=== PATIENT | male | born 1980 | race Caucasian/White ===

== ENCOUNTER 2018-05-15 02:29 | Emergency (ER) | payer SELFPAY ==
[2018-05-15 02:33] VITALS: BP 117/77
[2018-05-15] MEDS ORDERED: FLUORESCEIN SODIUM 1 MG STRIP OP ONE (02:33)
[2018-05-15] MEDS ORDERED: PROPARACAINE 0.5% 15 ML OPHT DROP ONE (02:33)
[2018-05-15] MEDS ORDERED: HYDROCOD/APAP 5/325 PREPACK#6 BTL TAKEHOME ONE (02:53)
[2018-05-15] MEDS ORDERED: ERYTHROMYCIN 0.5% 1 GM OPHT.OINT LEFTEYE ONE (02:53)
--- NOTE | 2018-05-15 02:53 | EDPHY ---
H & P Stated Complaint: L eye injury Time Seen by Provider: 05/15/18 02:46 HPI/ROS: Chief Complaint: Left eye injury HPI: 37-year-old male got poked in the left eye with a pool cue. He is complaining of blurry vision. Moderate eye pain which was improved with tetracaine administered by paramedics. No loss of consciousness. No bleeding. He does not wear glasses or contacts. ROS: 10 systems were reviewed and were negative except those elements noted in the HPI. PMH: Denies Social History: Occasional smoking, occasional alcohol Family History: non-contributory Physical Exam: Eye Exam Visual Acuity: 2/200 left eye at 4 ft EOM: Intact OU Visual Ram: Intact OU Pupil: Equal, round and reactive to light and accomodation OU External: Lids, lashes and margins normal OU Slit Lamp; Normal Conjuctiva, Iris normal, there is a large corneal defect encompassing the anterior surface of his left eye. There is diffuse for seen uptake. There is no leaking of aqueous humor., Anterior chambers clear without cells or flare, no hyphema, normal angles Fluorosceine exam: Diffuse uptake Tonometry: Not performed - Personal History Current Tetanus Diphtheria and Acellular Pertussis (TDAP): Yes - Medical/Surgical History Hx Asthma: No Hx Chronic Respiratory Disease: No Hx Diabetes: No Hx Cardiac Disease: No Hx Renal Disease: No Hx Cirrhosis: No Hx Alcoholism: No Hx HIV/AIDS: No Hx Splenectomy or Spleen Trauma: No Other PMH: GERD - Social History Smoking Status: Light smoker Constitutional: Initial Vital Signs Temperature (C) 36.7 C 05/15/18 02:31 Heart Rate 88 05/15/18 02:31 Respiratory Rate 16 05/15/18 02:31 Blood Pressure 117/77 05/15/18 02:31 O2 Sat (%) 96 05/15/18 02:31 O2 Delivery Mode Room Air Allergies/Adverse Reactions: No Known Allergies Allergy (Unverified 05/15/18 02:31) Home Medications: Medication Instructions Recorded Omeprazole 05/15/18 Medical Decision Making ED Course/Re-evaluation: 37-year-old male with a large corneal abrasion. Plan will be to discharge on erythromycin ointment. He needs to follow up with Ophthalmology today. Will send him home with oral pain medications. He will return to the emergency depart for any concerns. I have stressed to him the importance of follow-up. There is no evidence of globe perforation at this time. Departure - Departure Disposition: Home, Routine, Self-Care Clinical Impression: Corneal abrasion Condition: Good Instructions: Corneal Abrasion (ED), Erythromycin (Into the eye), Hydrocodone/ Acetaminophen (By mouth) Additional Instructions: It is extremely important that you follow up with Ophthalmology later today, call 1st thing this morning for the 1st available appointment to be seen today. Apply the eye ointment every 4 hr while awake. You may take hydrocodone with acetaminophen as needed for pain. Return to the emergency department for increasing eye pain, worsening vision, or any other concerns. Referrals: aLrry Park MD [Medical Doctor] - As per Instructions
== END 2018-05-15 03:23 | disposition home or self-care (01) ==
DX: S05.02XA Injury of conjunctiva and corneal abrasion without foreign body, left eye, initial encounter (principal); W50.0XXA Accidental hit or strike by another person, initial encounter; Y92.9 Unspecified place or not applicable; F17.200 Nicotine dependence, unspecified, uncomplicated

== ENCOUNTER 2018-05-26 18:33 | Emergency (ER) | payer SELFPAY ==
[2018-05-26 18:40] VITALS: BP 122/78
--- NOTE | 2018-05-26 19:14 | EDPHY ---
H & P Stated Complaint: FELL JOGGING/HIT HEAD DENIES LOC/+TRANSIENT MEMORY DEFICITS/R KNEE INJ L JA Time Seen by Provider: 05/26/18 18:59 HPI/ROS: CHIEF COMPLAINT: Minor head injury, mild concussion, knee abrasion HISTORY OF PRESENT ILLNESS: The patient presents the ED for evaluation of a minor head injury, mild concussion and knee abrasion that occurred while he was running approximately 3 hr ago. The patient initially was confused. He apparently struck the right side of his head. He has no hematoma. He is not anticoagulated. The patient has been ambulatory since the accident. He reports that his confusion has resolved. He has no complaints of acute headache. The patient denies any complaints of neck pain. REVIEW OF SYSTEMS: A comprehensive 10 point review of systems is otherwise negative aside from elements mentioned in the history of present illness. Source: Patient Exam Limitations: No limitations - Personal History Current Tetanus Diphtheria and Acellular Pertussis (TDAP): Yes - Medical/Surgical History Hx Asthma: No Hx Chronic Respiratory Disease: No Hx Diabetes: No Hx Cardiac Disease: No Hx Renal Disease: No Hx Cirrhosis: No Hx Alcoholism: No Hx HIV/AIDS: No Hx Splenectomy or Spleen Trauma: No Other PMH: GERD - Social History Smoking Status: Light smoker - Physical Exam Exam: General Appearance: Alert, no distress Head: Atraumatic, no hematoma, no crepitus, no bony tenderness Eyes: Pupils equal, round, reactive ENT, Mouth: No hemotympanum, no oral trauma Neck: Nontender, trachea midline Respiratory: No chest wall tender, subcutaneous air, lungs clear bilaterally Cardiovascular: Regular rate and rhythm Abdomen: Abdomen is soft and nontender, pelvis stable Skin: Superficial abrasion to the right knee Back: No midline T/L/S pain Extremities: Nontender, full range of motion Neurological: A&Ox3, normal motor function, normal sensory exam Constitutional: Initial Vital Signs Temperature (C) 37 C 05/26/18 18:36 Heart Rate 65 05/26/18 18:36 Respiratory Rate 18 05/26/18 18:36 Blood Pressure 122/78 H 05/26/18 18:36 O2 Sat (%) 95 05/26/18 18:36 O2 Delivery Mode Room Air Allergies/Adverse Reactions: No Known Allergies Allergy (Verified 05/26/18 18:36) Home Medications: Medication Instructions Recorded Omeprazole 05/15/18 Medical Decision Making ED Course/Re-evaluation: The patient presents to the ED for evaluation of a minor head injury. He has a GCS of 15. He has no evidence of a significant closed head injury clinically. I do not feel that a CT scan is indicated at this point time. I do feel the patient can be discharged home with customary concussion aftercare instructions. He is given the number of our on-call concussion specialist for any lingering symptoms. He is given customary aftercare instructions and return precautions. Differential Diagnosis: Differential diagnosis considered includes intracranial hemorrhage, skull fracture, concussion Departure - Departure Disposition: Home, Routine, Self-Care Clinical Impression: Minor head injury, Abrasion Condition: Good Instructions: Concussion (ED), Abrasion (ED) Additional Instructions: 1. Concussion aftercare as directed. 2. Tylenol and ibuprofen as needed for pain. 3. Return to the ED for severe headache, vomiting, abnormal behavior or other concerns. 4. Please schedule a follow-up appointment with the concussion specialist you have been referred to for any residual mild headache, confusion or other concerns. Referrals: Alina Jiménez MD [Medical Doctor] - As per Instructions
== END 2018-05-26 19:32 | disposition home or self-care (01) ==
LOC: EDBD
DX: S09.90XA Unspecified injury of head, initial encounter (principal); W19.XXXA Unspecified fall, initial encounter; Y93.02 Activity, running